=== PATIENT | male | born 1970 | race American Indian/Alaskan Native ===

== ENCOUNTER 2017-11-29 13:45 | Emergency (ER) | payer MEDICAID, OTHER ==
[2017-11-29 13:45] VITALS: PULSE 100; BMI 34.5
[2017-11-29 14:00] VITALS: BP 104/73; TEMP 98.1
[2017-11-29] MEDS ORDERED: Oxycodone/Acetaminophen 5/325 mg Tab PO STA (14:45)
[2017-11-29] MEDS ORDERED: Oxycodone/Acetaminophen 5/325 mg Tab ONE (14:50)
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
[2017-11-29 16:41] VITALS: PULSE 99; RESP 18; O2SAT 97
== END 2017-11-29 16:41 | disposition home or self-care (01) ==
LOC: H.ER 13:45
DX: M54.9 Dorsalgia, unspecified (principal); E11.9 Type 2 diabetes mellitus without complications; Z79.4 Long term (current) use of insulin; Z79.01 Long term (current) use of anticoagulants